=== PATIENT | male | born 1930 | race Asian ===

== ENCOUNTER → 2017-10-25 | Outpatient (CLI) | payer MEDICARE, OTHER | END | disposition home or self-care (01) | LOC: RAD 15:30 | DX: R05 Cough (principal); R50.9 Fever, unspecified; J98.11 Atelectasis; I51.7 Cardiomegaly; I70.90 Unspecified atherosclerosis | CPT/HCPCS: 71045 ==

== ENCOUNTER 2018-05-31 13:02 | Inpatient (IN) | payer MEDICARE, OTHER ==
[2018-05-31] MEDS: ALBUTEROL 0.083% (NEB) 2.5 MG/3 ML AMP INH (13:29)
[2018-05-31] MEDS: SOD CHLORIDE 0.9% 500 ML IV (13:34)
[2018-05-31] MEDS: CEFEPIME 1GM/50 ML (PMX) 50 ML IVPB (13:34)
[2018-05-31 13:46] LABS: ADD MAN DIFF? NO
[2018-05-31 13:51] LABS: WHITE BLOOD COUNT 9.6 10^3/ul (4.8-10.8)
[2018-05-31 13:52] LABS: BASOPHILS % 0.2 % (0.0-2.0); EOSINOPHILS # 0.1 10^3/ul (0.0-0.5); EOSINOPHILS % 0.5 % (0.0-7.0); HEMOGLOBIN 13.2 g/dl (14.0-18.0); LYMPHOCYTES # 1.4 10^3/ul (0.8-2.9); LYMPHOCYTES % 14.1 % (15.0-51.0); MEAN CORPUSCULAR HEMOGLOBIN 32.3 pg (29.0-33.0); MEAN CORPUSCULAR VOLUME 97.8 fl (82.0-101.0); MEAN PLATELET VOLUME 9.7 fl (7.4-10.4); MONOCYTE # 0.9 10^3/ul (0.3-0.9); NEUTROPHIL # 7.2 10^3/ul (1.6-7.5); NEUTROPHILS % 75.6 % (39.0-77.0); PLATELET COUNT 226 10^3/UL (140-415); RED BLOOD COUNT 4.09 10^6/ul (4.70-6.10); RED CELL DISTRIBUTION WIDTH 12.7 % (11.5-14.5)
[2018-05-31] MEDS: VANCOMYCIN 1 GM (PMX) 250 ML IVPB (14:04)
[2018-05-31 14:08] LABS: ALANINE AMINOTRANSFERASE 24 IU/L (13-69); ALBUMIN 3.5 g/dl (3.3-4.9); ALBUMIN/GLOBULIN RATIO 0.87; ALKALINE PHOSPHATASE 96 IU/L (42-121); ANION GAP 18 (8-16); ASPARTATE AMINO TRANSFERASE 21 IU/L (15-46); BILIRUBIN,INDIRECT 0.9 mg/dl (0-1.1); BILIRUBIN,TOTAL 0.9 mg/dl (0.2-1.3); BLOOD UREA NITROGEN 11 mg/dl (7-20); CALCIUM 8.9 mg/dl (8.4-10.2); CARBON DIOXIDE 26 mmol/L (21-31); CHLORIDE 105 mmol/L (97-110); CREATININE 1.02 mg/dl (0.61-1.24); GLUCOSE 133 mg/dl (70-220); POTASSIUM 3.7 mmol/L (3.5-5.1); SODIUM 145 mmol/L (135-144); TOTAL PROTEIN 7.5 g/dl (6.1-8.1)
[2018-05-31] MEDS: METHYLPREDNISOLONE 125 MG INJ IV (14:12)
[2018-05-31] MEDS: ACETAMINOPHEN 500 MG TAB PO (14:12)
[2018-05-31] MEDS: ALBUTEROL 0.5% (NEB) 2.5 MG/0.5 ML AMP INH (14:21)
[2018-05-31] MEDS ORDERED: LORAZEPAM 2 MG INJ IV (16:00)
[2018-05-31] MEDS ORDERED: ALBUTEROL/IPRATROPIUM (NEB) 3 ML AMP HHN (16:00)
[2018-05-31] MEDS ORDERED: MAGNESIUM HYDROXIDE 30ML CUP PO (16:00)
[2018-05-31] MEDS ORDERED: DOCUSATE SODIUM 100 MG CAP PO (16:00)
[2018-05-31] MEDS ORDERED: NACL 0.9% 3 ML SYG IV (16:00)
[2018-05-31] MEDS ORDERED: NA PHOSPHATE/BIPHOS 133 ML ENEMA PR (16:00)
[2018-05-31] MEDS ORDERED: ONDANSETRON 4 MG INJ IV ×2 (16:00→16:30)
[2018-05-31] MEDS ORDERED: morphine 2 MG INJ IV (16:00)
[2018-05-31] MEDS ORDERED: HYDROCODONE/APAP (5/325) TAB PO (16:00)
[2018-05-31] MEDS ORDERED: hydrALAzine 20 MG INJ IV (16:00)
[2018-05-31] MEDS ORDERED: NITROGLYCERIN (SL) 0.4 MG TAB SL (16:00)
[2018-05-31] MEDS: SOD CHLORIDE 0.9% 1,000 ML IV (16:02)
[2018-05-31] MEDS ORDERED: ACETAMINOPHEN 325 MG TAB PO (16:30)
[2018-05-31] MEDS: SOD CHLORIDE 0.45% 1,000 ML IV (16:44)
[2018-05-31 16:45] LABS: FREE T4 (FREE THYROXINE) 1.59 ng/dl (0.85-1.93)
[2018-05-31 16:52] LABS: LACTIC ACID 3.4 mmol/L (0.5-2.0)
[2018-05-31] MEDS: LATANOPROST 0.005% 2.5 ML OPH BOTH EYES (20:45)
[2018-05-31] MEDS: HEPARIN 5,000 UNIT/0.5 ML VIAL SC (20:49)
[2018-05-31 22:23] LABS: LACTIC ACID 4.9 mmol/L (0.5-2.0)
[2018-05-31] MEDS: SOD CHLORIDE 0.9% 250 ML IV (22:50)
[2018-06-01 01:58] LABS: ADD UMIC NO; UR ASCORBIC ACID NEGATIVE (NEGATIVE); UR BILIRUBIN (Dip) NEGATIVE (NEGATIVE); UR BLOOD (Dip) NEGATIVE (NEGATIVE); UR CLARITY CLEAR (CLEAR); UR COLOR YELLOW (YELLOW); UR GLUCOSE (Dip) 3+ mg/dL (NEGATIVE); UR KETONES (Dip) NEGATIVE (NEGATIVE); UR LEUKOCYTE ESTERASE (Dip) NEGATIVE Leu/ul (NEGATIVE); UR NITRITE (Dip) NEGATIVE (NEGATIVE); UR SPECIFIC GRAVITY (Dip) 1.018 (1.003-1.030); UR TOTAL PROTEIN (Dip) NEGATIVE (NEGATIVE); UR UROBILINOGEN (Dip) NEGATIVE (NEGATIVE)
[2018-06-01] MEDS: SOD CHLORIDE 0.45% 1,000 ML IV ×2 (05:19→19:01)
[2018-06-01] MEDS: PANTOPRAZOLE 40 MG INJ IV (06:09)
[2018-06-01 07:01] LABS: ADD MAN DIFF? NO
[2018-06-01 07:11] LABS: WHITE BLOOD COUNT 9.7 10^3/ul (4.8-10.8)
[2018-06-01 07:11] LABS: BASOPHILS % 0.2 % (0.0-2.0); HEMATOCRIT 34.3 % (42.0-52.0); HEMOGLOBIN 11.6 g/dl (14.0-18.0); LYMPHOCYTES # 0.8 10^3/ul (0.8-2.9); LYMPHOCYTES % 8.3 % (15.0-51.0); MEAN CORPUSCULAR HEMOGLOBIN 32.9 pg (29.0-33.0); MEAN CORPUSCULAR HGB CONC 33.8 g/dl (32.0-37.0); MEAN CORPUSCULAR VOLUME 97.2 fl (82.0-101.0); MONOCYTE # 0.6 10^3/ul (0.3-0.9); MONOCYTES % 6.2 % (0.0-11.0); NEUTROPHIL # 8.2 10^3/ul (1.6-7.5); NEUTROPHILS % 84.7 % (39.0-77.0); PLATELET COUNT 211 10^3/UL (140-415); POSITIVE DIFF @See below; RED BLOOD COUNT 3.53 10^6/ul (4.70-6.10); RED CELL DISTRIBUTION WIDTH 12.8 % (11.5-14.5)
[2018-06-01 07:36] LABS: LACTIC ACID 1.6 mmol/L (0.5-2.0)
[2018-06-01 07:54] LABS: CHOLESTEROL 116 mg/dl (100-200)
[2018-06-01 07:54] LABS: CHOL/HDL RATIO 4.1 RATIO; HDL CHOLESTEROL 28 mg/dl (31-75); LDL CHOLESTEROL,CALCULATED 73 mg/dl; TRIGLYCERIDES 74 mg/dl (0-149)
[2018-06-01 07:58] LABS: ANION GAP 12 (8-16); BLOOD UREA NITROGEN 14 mg/dl (7-20); CALCIUM 8.4 mg/dl (8.4-10.2); CARBON DIOXIDE 24 mmol/L (21-31); CHLORIDE 109 mmol/L (97-110); CREATININE 0.87 mg/dl (0.61-1.24); GLUCOSE 137 mg/dl (70-220); MAGNESIUM 2.2 mg/dl (1.7-2.5); PHOSPHORUS 2.3 mg/dl (2.5-4.9); POTASSIUM 3.7 mmol/L (3.5-5.1); SODIUM 141 mmol/L (135-144)
[2018-06-01 08:03] LABS: HEMOGLOBIN A1C 5.9 % (0-5.9)
[2018-06-01] MEDS: LEVOFLOXACIN 750MG/D5W (PMX) 150 ML IVPB (08:43)
[2018-06-01] MEDS: HEPARIN 5,000 UNIT/0.5 ML VIAL SC ×2 (08:52→20:28)
[2018-06-01 10:11] LABS: ANISOCYTOSIS 1+ (0-0); BAND NEUTROPHILS #M 2.1 10^3/ul (0.0-0.6); BAND NEUTROPHILS % (M) 22 % (0-4); GIANT THROMBO% (M) 4 % (0-0); LYMPHOCYTES #M 0.1 10^3/ul (0.8-2.9); LYMPHOCYTES % (M) 2 % (15-51); MONOCYTE #M 0.5 10^3/ul (0.3-0.9); MONOCYTES % (M) 6 % (0-11); PLATELET ESTIMATE NORMAL; SEGMENTED NEUTROPHILS (M) % 70 % (39-77); SMUDGE%M 1 % (0-0)
[2018-06-01] MEDS: POTASSIUM PHOSPHATE 20 MEQ in SOD CHLORIDE 0.9% 250 ML IVPB (13:26)
[2018-06-01] MEDS: METHYLPREDNISOLONE 125 MG INJ IV ×2 (13:26→21:22)
[2018-06-01] MEDS: ALBUTEROL/IPRATROPIUM (NEB) 3 ML AMP HHN ×3 (13:46→21:43)
[2018-06-01] MEDS: LATANOPROST 0.005% 2.5 ML OPH BOTH EYES (20:25)
[2018-06-01] MEDS: ACETAMINOPHEN 325 MG TAB PO (20:25)
[2018-06-01 23:28] LABS: LACTIC ACID 2.2 mmol/L (0.5-2.0)
[2018-06-02] MEDS: METHYLPREDNISOLONE 125 MG INJ IV ×2 (05:20→14:19)
[2018-06-02] MEDS: PANTOPRAZOLE 40 MG INJ IV (05:20)
[2018-06-02 06:07] LABS: ADD MAN DIFF? NO
[2018-06-02 06:15] LABS: BASOPHILS % 0.2 % (0.0-2.0); HEMATOCRIT 36.3 % (42.0-52.0); HEMOGLOBIN 11.8 g/dl (14.0-18.0); LYMPHOCYTES # 0.7 10^3/ul (0.8-2.9); LYMPHOCYTES % 6.9 % (15.0-51.0); MEAN CORPUSCULAR HEMOGLOBIN 31.7 pg (29.0-33.0); MEAN CORPUSCULAR HGB CONC 32.5 g/dl (32.0-37.0); MEAN CORPUSCULAR VOLUME 97.6 fl (82.0-101.0); MEAN PLATELET VOLUME 10.4 fl (7.4-10.4); MONOCYTE # 0.4 10^3/ul (0.3-0.9); MONOCYTES % 3.5 % (0.0-11.0); NEUTROPHIL # 9.2 10^3/ul (1.6-7.5); NEUTROPHILS % 88.8 % (39.0-77.0); PLATELET COUNT 232 10^3/UL (140-415); RED BLOOD COUNT 3.72 10^6/ul (4.70-6.10); RED CELL DISTRIBUTION WIDTH 12.9 % (11.5-14.5)
[2018-06-02 06:15] LABS: WHITE BLOOD COUNT 10.4 10^3/ul (4.8-10.8)
[2018-06-02 06:44] LABS: ANION GAP 14 (8-16); BLOOD UREA NITROGEN 21 mg/dl (7-20); CALCIUM 8.5 mg/dl (8.4-10.2); CARBON DIOXIDE 22 mmol/L (21-31); CHLORIDE 110 mmol/L (97-110); CREATININE 0.94 mg/dl (0.61-1.24); GLUCOSE 161 mg/dl (70-220); POTASSIUM 4.3 mmol/L (3.5-5.1); SODIUM 142 mmol/L (135-144)
[2018-06-02] MEDS: SOD CHLORIDE 0.45% 1,000 ML IV (06:54)
[2018-06-02] MEDS: LEVOFLOXACIN 750MG/D5W (PMX) 150 ML IVPB (09:02)
[2018-06-02] MEDS: HEPARIN 5,000 UNIT/0.5 ML VIAL SC (09:11)
[2018-06-02] MEDS: ALBUTEROL/IPRATROPIUM (NEB) 3 ML AMP HHN (13:23)
== END 2018-06-02 16:44 | disposition home or self-care (01) | DRG 194 ==
LOC: E/R 13:02 → TEL 16:03
PROVIDERS: Hospitalist
DX: J18.9 Pneumonia, unspecified organism (principal); J44.0 Chronic obstructive pulmonary disease with (acute) lower respiratory infection; J45.901 Unspecified asthma with (acute) exacerbation; I10 Essential (primary) hypertension; J20.9 Acute bronchitis, unspecified; Z87.891 Personal history of nicotine dependence
CPT/HCPCS: 36415; 71045; 80048; 80053; 80061; 81003; 83036; 83605; 83735; 84100; 84439; 84443; 85025; 87040; 87086; 92610; 94640; 94644; 94664; 96365; 96366; 96368; 96375; 97161; 99285-25